=== PATIENT | female | born 1980 ===

== ENCOUNTER 2021-09-12 20:58 | Emergency (ER) | payer OTHER, SELFPAY ==
--- NOTE | 2021-09-12 21:56 | Event Note ---
ED Screening Note Date of service: 09/12/21 Time: 21:54 ED Screening Note: This 41-year-old female with history of paranoid schizophrenia presents for anxiety suicidal ideation without plan states cough productive clear concern for Covid, requesting psych evaluation, she is out of meds usual regimen is trazodone Celexa This initial assessment/diagnostic orders/clinical plan/treatment(s) is/are subject to change based on patients health status, clinical progression and re- assessment by fellow clinical providers in the ED. Further treatment and workup at subsequent clinical providers discretion. Patient/guardian urged not to elope from the ED as their condition may be serious if not clinically assessed and managed. Initial orders include: Psych consult, ua, hcg, uds, cmp, cbc, salyc, acet, cxr
--- NOTE | 2021-09-12 22:12 | XRay Report ---
CHEST 2 VIEWS INDICATION / CLINICAL INFORMATION: Medical Clearance Psych. COMPARISON: None available. FINDINGS: SUPPORT DEVICES: None. HEART / MEDIASTINUM: No significant abnormality. LUNGS / PLEURA: No significant pulmonary or pleural abnormality. No pneumothorax. ADDITIONAL FINDINGS: No significant additional findings. IMPRESSION: 1. No acute findings. Signer Name: Nik Collins MD Signed: 09/12/2021 10:08 PM Workstation Name: [id number]
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
[2021-09-12 22:56] LABS: Basophils % (Auto) 0.6 % (0.0-1.8); Eosinophils % (Auto) 0.1 % (0.0-4.3); Hematocrit 33.5 % (30.3-42.9); Hemoglobin 11.4 gm/dl (10.1-14.3); Lymphocytes # (Auto) 0.9 K/mm3 (1.2-5.4); Lymphocytes % (Auto) 14.1 % (13.4-35.0); Mean Corpuscular HGB Conc 34 % (30-34); Mean Corpuscular Volume 87 fl (79-97); Platelet Count 278 K/mm3 (140-440); Red Blood Count 3.85 M/mm3 (3.65-5.03); Red Cell Distribution Width 14.9 % (13.2-15.2)
[2021-09-12 23:17] LABS: BUN/Creatinine Ratio 10; Blood Urea Nitrogen 10 mg/dL (7-17); Calcium 9.1 mg/dL (8.4-10.2); Hemolysis Index 0
[2021-09-13 01:56] LABS: Bilirubin,Urine NEG (Negative); Blood,Urine NEG (Negative); Color,Urine Yellow (Yellow); Mucus,Urine FEW /HPF; Protein,Urine <15 mg/dL mg/dL (Negative); Urobilinogen,Urine < 2.0 mg/dL (<2.0)
[2021-09-13 02:04] LABS: Amphetamine Screen,Urine PRESUMPTIVE POSITIVE; Benzodiazepines Screen,Urine PRESUMPTIVE NEGATIVE; Cannabinoid Screen,Urine PRESUMPTIVE POSITIVE; Cocaine Screen,Urine PRESUMPTIVE POSITIVE; Methadone Screen,Urine PRESUMPTIVE NEGATIVE; Opiate Screen,Urine PRESUMPTIVE NEGATIVE
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
[2021-09-13] MEDS: TOPIRAMATE TAB 25 MG TAB PO SCH ×2 (12:50→23:28)
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
[2021-09-13] MEDS: traZODone 50 MG TAB PO SCH (23:28)
[2021-09-14] MEDS: TOPIRAMATE TAB 25 MG TAB PO SCH ×2 (10:59→22:35)
--- NOTE | 2021-09-14 11:25 | Progress Note ---
Subjective - Reason for Consult Consult date: 09/14/21 Reason for consult: mental health evaluation - Chief Complaint Chief complaint: Patient was seen today, she is calm. The patient continues to endorse suicidal ideation. She denies homicidal ideation and denies hallucinations. REVIEW OF SYSTEMS Constitutional: Negative for weight loss ENT: Negative for stridor Respiratory: Negative for cough or hemoptysis All other systems reviewed and are negative MENTAL STATUS EXAMINATION General Appearance and Behavior: Age appropriate, good hygiene, not wearing appropriate clothes, good eye contact, cooperative polite with questioning. Cooperation: Participating/engaged Psychomotor Behavior: Psychomotor normal Mood: Depressed Affect and affective range: congruent to stated mood Thought Process: suicidal Thought Content: Goal directed Speech: Normal tone and pace Suicidal Ideation: Yes Homicidal Ideation: Denies Hallucinations: Denies Delusions: None Impulse Control: Limited Insight and Judgment: Limited insight and poor judgment Memory: Normal Attention: Divided attention impaired Orientation: A/o x 3 Assessment and Plan (1)Major depressive disorder, recurrent,severe- F33.2 (2) Delusional Disorder Treatment Plan 1013 Topamax 50mg po BID Trazodone 50mg po qhs Medical: per primary Disposition: Recommend acute psychiatric inpatient treatment Will follow. Thanks Case staffed with Dr. Jimenes Medications and Allergies Mental Status Exam - Vital signs Last Vital Signs Temp 97.6 F 09/14/21 08:42 Pulse 90 09/14/21 08:42 Resp 18 09/14/21 08:42 BP 122/68 09/14/21 08:42 Pulse Ox 100 09/14/21 11:01
--- NOTE | 2021-09-14 11:35 | Emergency Department Report ---
Blank Doc - Documentation Documentation: Patient presented with suicidal ideation and still has suicidal thoughts. Pat ient has been medically cleared. Patient was seen by psychiatric services today. The plan is for psychiatric admission. They will attempt placement.
[2021-09-14] MEDS: traZODone 50 MG TAB PO SCH (22:35)
--- NOTE | 2021-09-15 09:45 | Progress Note ---
Subjective - Reason for Consult Consult date: 09/15/21 Reason for consult: mental health eval - Chief Complaint Chief complaint: Patient was seen today, she states she is feeling better. The patient continues to endorse suicidal ideation. She denies homicidal ideation and denies hallucinations. REVIEW OF SYSTEMS Constitutional: Negative for weight loss ENT: Negative for stridor Respiratory: Negative for cough or hemoptysis All other systems reviewed and are negative MENTAL STATUS EXAMINATION General Appearance and Behavior: Age appropriate, good hygiene, not wearing appropriate clothes, good eye contact, cooperative polite with questioning. Cooperation: Participating/engaged Psychomotor Behavior: Psychomotor normal Mood: Depressed Affect and affective range: congruent to stated mood Thought Process: suicidal Thought Content: Goal directed Speech: Normal tone and pace Suicidal Ideation: Yes Homicidal Ideation: Denies Hallucinations: Denies Delusions: None Impulse Control: Limited Insight and Judgment: Limited insight and poor judgment Memory: Normal Attention: Divided attention impaired Orientation: A/o x 3 Assessment and Plan (1)Major depressive disorder, recurrent,severe- F33.2 (2) Delusional Disorder Treatment Plan 1013 Topamax 50mg po BID Trazodone 50mg po qhs Medical: per primary Disposition: Recommend acute psychiatric inpatient treatment Will follow. Thanks Case staffed with Dr. Jimenes Medications and Allergies Mental Status Exam - Vital signs Last Vital Signs Temp 97.6 F 09/15/21 08:15 Pulse 91 H 09/15/21 08:15 Resp 18 09/15/21 08:15 BP 116/41 09/15/21 08:15 Pulse Ox 99 09/15/21 08:15
[2021-09-15] MEDS: TOPIRAMATE TAB 25 MG TAB PO SCH ×2 (09:59→22:00)
--- NOTE | 2021-09-15 12:37 | Emergency Department Report ---
Blank Doc - Documentation Documentation: Patient continues to express suicidal thoughts. She has been seen by psychiat anika services this morning. We are still awaiting psychiatric admission. Receiving facility is still pending.
[2021-09-15] MEDS: traZODone 50 MG TAB PO SCH (22:00)
[2021-09-16] MEDS ORDERED: NORepinephrine/NS 4 MG-250 ML 0 MG/0 ML BAG IV ONE (08:55)
[2021-09-16] MEDS ORDERED: DOPamine/D5W 800 MG/250 ML 0 MG/0 ML BAG IV ONE (08:55)
[2021-09-16] MEDS ORDERED: SODIUM CHLORIDE 0.9% 1000 ML 0 ML ONE (08:55)
[2021-09-16] MEDS: TOPIRAMATE TAB 25 MG TAB PO SCH ×2 (10:25→23:17)
--- NOTE | 2021-09-16 10:39 | Event Note ---
Date: 09/16/21 The patient was evaluated in the emergency department for symptoms described in the history of present illness. He/she was evaluated in the context of the global COVID-19 pandemic, which necessitated consideration that the patient might be at risk for infection with the virus that causes COVID-19. Institutional protocols and algorithms that pertain to the evaluation of patients at risk for COVID-19 are in a state of rapid change based on information released by regulatory bodies including the CDC and federal and state organizations. These policies and algorithms were followed during the patient's care in the emergency department. Please note that these policies, procedures and recommendations changed on a rapid basis. Laboratory studies, vital signs, nursing documentation, ER documentation, and psychiatric documentation are reviewed and appreciated. Nursing team reports no acute events this morning or concerns. The patient is awake and ambulating and does not appear to be in any acute distress. The patient was deemed medically suitable for psychiatric disposition and placement during his initial ER evaluation. The patient continues to remain medically suitable for psychiatric placement and disposition. sHe is currently pending psychiatric placement. STI screening and testing does not constitute an emergent medical condition, and can be performed as an outpatient, with the patient's primary care physician, or local health department. Vital Signs 09/12/21 09/13/21 09/13/21 21:21 00:06 02:10 Temperature 98.2 F 98.9 F 98.6 F Pulse Rate 99 H 73 83 Respiratory 18 16 18 Rate Blood Pressure 122/71 115/61 118/60 [Right] O2 Sat by Pulse 100 97 98 Oximetry 09/13/21 09/13/21 09/13/21 07:33 07:51 14:44 Temperature 98.6 F 98.8 F Pulse Rate 86 86 Respiratory 20 20 Rate Blood Pressure 128/66 128/66 [Right] O2 Sat by Pulse 98 98 98 Oximetry 09/13/21 09/14/21 09/14/21 20:58 05:36 08:42 Temperature 98.8 F 98 F 97.6 F Pulse Rate 73 85 90 Respiratory 16 18 18 Rate Blood Pressure 104/34 101/54 122/68 [Right] O2 Sat by Pulse 99 98 100 Oximetry 09/14/21 09/14/21 09/15/21 11:01 21:20 08:15 Temperature 98.9 F 97.6 F Pulse Rate 94 H 91 H Respiratory 13 18 Rate Blood Pressure 123/82 116/41 [Right] O2 Sat by Pulse 100 98 99 Oximetry Lab Results 09/12/21 09/12/21 09/12/21 Range/Units 22:31 22:31 22:31 WBC 6.3 (4.5-11.0) K/mm3 RBC 3.85 (3.65-5.03) M/mm3 Hgb 11.4 (10.1-14.3) gm/dl Hct 33.5 (30.3-42.9) % MCV 87 (79-97) fl MCH 30 (28-32) pg MCHC 34 (30-34) % RDW 14.9 (13.2-15.2) % Plt Count 278 (140-440) K/mm3 Lymph % (Auto) 14.1 (13.4-35.0) % [place] % (Auto) 15.0 H (0.0-7.3) % Eos % (Auto) 0.1 (0.0-4.3) % Baso % (Auto) 0.6 (0.0-1.8) % Lymph # (Auto) 0.9 L (1.2-5.4) K/mm3 [place] # (Auto) 1.0 H (0.0-0.8) K/mm3 Eos # (Auto) 0.0 (0.0-0.4) K/mm3 Baso # (Auto) 0.0 (0.0-0.1) K/mm3 Seg Neutrophils % 70.2 H (40.0-70.0) % Seg Neutrophils # 4.5 (1.8-7.7) K/mm3 Sodium 140 (137-145) mmol/L Potassium 3.7 (3.6-5.0) mmol/L Chloride 104.4 (98-107) mmol/L Carbon Dioxide 20 L (22-30) mmol/L Anion Gap 19 mmol/L BUN 10 (7-17) mg/dL Creatinine 1.0 (0.6-1.2) mg/dL Estimated GFR > 60 ml/min BUN/Creatinine Ratio 10 % Glucose 82 (65-100) mg/dL Calcium 9.1 (8.4-10.2) mg/dL TSH 1.270 (0.270-4.200) mlU/mL HCG, Qual (Negative) Urine Color (Yellow) Urine Turbidity (Clear) Urine pH (5.0-7.0) Ur Specific [place] (1.003-1.030) Urine Protein (Negative) mg/dL Urine Glucose (UA) (Negative) mg/dL Urine Ketones (Negative) mg/dL Urine Blood (Negative) Urine Nitrite (Negative) Urine Bilirubin (Negative) Urine Urobilinogen (<2.0) mg/dL Ur Leukocyte Esterase (Negative) Urine WBC (Auto) (0.0-6.0) /HPF Urine RBC (Auto) (0.0-6.0) /HPF U Epithel Cells (Auto) (0-13.0) /HPF Urine Mucus /HPF Salicylates (2.8-20.0) mg/dL Urine Opiates Screen Urine Methadone Screen Acetaminophen (10.0-30.0) ug/mL Ur Barbiturates Screen Ur Phencyclidine Scrn Ur Amphetamines Screen U Benzodiazepines Scrn Urine Cocaine Screen U Marijuana (THC) Screen Drugs of Abuse Note Plasma/Serum Alcohol (0-0.07) % Coronavirus (PCR) (Negative) 09/12/21 09/12/21 09/12/21 Range/Units 22:31 22:31 23:11 WBC (4.5-11.0) K/mm3 RBC (3.65-5.03) M/mm3 Hgb (10.1-14.3) gm/dl Hct (30.3-42.9) % MCV (79-97) fl MCH (28-32) pg MCHC (30-34) % RDW (13.2-15.2) % Plt Count (140-440) K/mm3 Lymph % (Auto) (13.4-35.0) % [place] % (Auto) (0.0-7.3) % Eos % (Auto) (0.0-4.3) % Baso % (Auto) (0.0-1.8) % Lymph # (Auto) (1.2-5.4) K/mm3 [place] # (Auto) (0.0-0.8) K/mm3 Eos # (Auto) (0.0-0.4) K/mm3 Baso # (Auto) (0.0-0.1) K/mm3 Seg Neutrophils % (40.0-70.0) % Seg Neutrophils # (1.8-7.7) K/mm3 Sodium (137-145) mmol/L Potassium (3.6-5.0) mmol/L Chloride (98-107) mmol/L Carbon Dioxide (22-30) mmol/L Anion Gap mmol/L BUN (7-17) mg/dL Creatinine (0.6-1.2) mg/dL Estimated GFR ml/min BUN/Creatinine Ratio % Glucose (65-100) mg/dL Calcium (8.4-10.2) mg/dL TSH (0.270-4.200) mlU/mL HCG, Qual (Negative) Urine Color (Yellow) Urine Turbidity (Clear) Urine pH (5.0-7.0) Ur Specific [place] (1.003-1.030) Urine Protein (Negative) mg/dL Urine Glucose (UA) (Negative) mg/dL Urine Ketones (Negative) mg/dL Urine Blood (Negative) Urine Nitrite (Negative) Urine Bilirubin (Negative) Urine Urobilinogen (<2.0) mg/dL Ur Leukocyte Esterase (Negative) Urine WBC (Auto) (0.0-6.0) /HPF Urine RBC (Auto) (0.0-6.0) /HPF U Epithel Cells (Auto) (0-13.0) /HPF Urine Mucus /HPF Salicylates < 0.3 L (2.8-20.0) mg/dL Urine Opiates Screen Urine Methadone Screen Acetaminophen 5.0 L (10.0-30.0) ug/mL Ur Barbiturates Screen Ur Phencyclidine Scrn Ur Amphetamines Screen U Benzodiazepines Scrn Urine Cocaine Screen U Marijuana (THC) Screen Drugs of Abuse Note Plasma/Serum Alcohol < 0.01 (0-0.07) % Coronavirus (PCR) (Negative) 09/13/21 09/13/21 09/13/21 Range/Units 00:48 01:18 01:18 WBC (4.5-11.0) K/mm3 RBC (3.65-5.03) M/mm3 Hgb (10.1-14.3) gm/dl Hct (30.3-42.9) % MCV (79-97) fl MCH (28-32) pg MCHC (30-34) % RDW (13.2-15.2) % Plt Count (140-440) K/mm3 Lymph % (Auto) (13.4-35.0) % [place] % (Auto) (0.0-7.3) % Eos % (Auto) (0.0-4.3) % Baso % (Auto) (0.0-1.8) % Lymph # (Auto) (1.2-5.4) K/mm3 [place] # (Auto) (0.0-0.8) K/mm3 Eos # (Auto) (0.0-0.4) K/mm3 Baso # (Auto) (0.0-0.1) K/mm3 Seg Neutrophils % (40.0-70.0) % Seg Neutrophils # (1.8-7.7) K/mm3 Sodium (137-145) mmol/L Potassium (3.6-5.0) mmol/L Chloride (98-107) mmol/L Carbon Dioxide (22-30) mmol/L Anion Gap mmol/L BUN (7-17) mg/dL Creatinine (0.6-1.2) mg/dL Estimated GFR ml/min BUN/Creatinine Ratio % Glucose (65-100) mg/dL Calcium (8.4-10.2) mg/dL TSH (0.270-4.200) mlU/mL HCG, Qual Negative (Negative) Urine Color Yellow (Yellow) Urine Turbidity Clear (Clear) Urine pH 5.0 (5.0-7.0) Ur Specific [place] 1.014 (1.003-1.030) Urine Protein <15 mg/dl (Negative) mg/dL Urine Glucose (UA) Neg (Negative) mg/dL Urine Ketones Tr (Negative) mg/dL Urine Blood Neg (Negative) Urine Nitrite Neg (Negative) Urine Bilirubin Neg (Negative) Urine Urobilinogen < 2.0 (<2.0) mg/dL Ur Leukocyte Esterase Neg (Negative) Urine WBC (Auto) 1.0 (0.0-6.0) /HPF Urine RBC (Auto) 2.0 (0.0-6.0) /HPF U Epithel Cells (Auto) 2.0 (0-13.0) /HPF Urine Mucus Few /HPF Salicylates (2.8-20.0) mg/dL Urine Opiates Screen Presumptive negative Urine Methadone Screen Presumptive negative Acetaminophen (10.0-30.0) ug/mL Ur Barbiturates Screen Presumptive negative Ur Phencyclidine Scrn Presumptive negative Ur Amphetamines Screen Presumptive positive U Benzodiazepines Scrn Presumptive negative Urine Cocaine Screen Presumptive positive U Marijuana (THC) Screen Presumptive positive Drugs of Abuse Note Disclamer Plasma/Serum Alcohol (0-0.07) % Coronavirus (PCR) (Negative) 09/13/21 Range/Units 10:30 WBC (4.5-11.0) K/mm3 RBC (3.65-5.03) M/mm3 Hgb (10.1-14.3) gm/dl Hct (30.3-42.9) % MCV (79-97) fl MCH (28-32) pg MCHC (30-34) % RDW (13.2-15.2) % Plt Count (140-440) K/mm3 Lymph % (Auto) (13.4-35.0) % [place] % (Auto) (0.0-7.3) % Eos % (Auto) (0.0-4.3) % Baso % (Auto) (0.0-1.8) % Lymph # (Auto) (1.2-5.4) K/mm3 [place] # (Auto) (0.0-0.8) K/mm3 Eos # (Auto) (0.0-0.4) K/mm3 Baso # (Auto) (0.0-0.1) K/mm3 Seg Neutrophils % (40.0-70.0) % Seg Neutrophils # (1.8-7.7) K/mm3 Sodium (137-145) mmol/L Potassium (3.6-5.0) mmol/L Chloride (98-107) mmol/L Carbon Dioxide (22-30) mmol/L Anion Gap mmol/L BUN (7-17) mg/dL Creatinine (0.6-1.2) mg/dL Estimated GFR ml/min BUN/Creatinine Ratio % Glucose (65-100) mg/dL Calcium (8.4-10.2) mg/dL TSH (0.270-4.200) mlU/mL HCG, Qual (Negative) Urine Color (Yellow) Urine Turbidity (Clear) Urine pH (5.0-7.0) Ur Specific [place] (1.003-1.030) Urine Protein (Negative) mg/dL Urine Glucose (UA) (Negative) mg/dL Urine Ketones (Negative) mg/dL Urine Blood (Negative) Urine Nitrite (Negative) Urine Bilirubin (Negative) Urine Urobilinogen (<2.0) mg/dL Ur Leukocyte Esterase (Negative) Urine WBC (Auto) (0.0-6.0) /HPF Urine RBC (Auto) (0.0-6.0) /HPF U Epithel Cells (Auto) (0-13.0) /HPF Urine Mucus /HPF Salicylates (2.8-20.0) mg/dL Urine Opiates Screen Urine Methadone Screen Acetaminophen (10.0-30.0) ug/mL Ur Barbiturates Screen Ur Phencyclidine Scrn Ur Amphetamines Screen U Benzodiazepines Scrn Urine Cocaine Screen U Marijuana (THC) Screen Drugs of Abuse Note Plasma/Serum Alcohol (0-0.07) % Coronavirus (PCR) Positive A (Negative)
--- NOTE | 2021-09-16 11:50 | Progress Note ---
Subjective - Reason for Consult Consult date: 09/16/21 Reason for consult: SI - Chief Complaint Chief complaint: Patient was seen today, she states she is feeling better. The patient continues to endorse suicidal ideation. She denies homicidal ideation and denies hallucinations. REVIEW OF SYSTEMS Constitutional: Negative for weight loss ENT: Negative for stridor Respiratory: Negative for cough or hemoptysis All other systems reviewed and are negative MENTAL STATUS EXAMINATION General Appearance and Behavior: Age appropriate, good hygiene, not wearing appropriate clothes, good eye contact, cooperative polite with questioning. Cooperation: Participating/engaged Psychomotor Behavior: Psychomotor normal Mood: Depressed Affect and affective range: congruent to stated mood Thought Process: suicidal Thought Content: Goal directed Speech: Normal tone and pace Suicidal Ideation: Yes Homicidal Ideation: Denies Hallucinations: Denies Delusions: None Impulse Control: Limited Insight and Judgment: Limited insight and poor judgment Memory: Normal Attention: Divided attention impaired Orientation: A/o x 3 Assessment and Plan (1)Major depressive disorder, recurrent,severe- F33.2 (2) Delusional Disorder Treatment Plan 1013 Topamax 50mg po BID Trazodone 50mg po qhs Medical: per primary Disposition: Recommend acute psychiatric inpatient treatment Will follow. Thanks Case staffed with Dr. Jimenes Medications and Allergies Mental Status Exam - Vital signs Last Vital Signs Temp 97.6 F 09/15/21 08:15 Pulse 91 H 09/15/21 08:15 Resp 18 09/15/21 08:15 BP 116/41 09/15/21 08:15 Pulse Ox 99 09/15/21 08:15
[2021-09-16] MEDS: traZODone 50 MG TAB PO SCH (23:16)
[2021-09-17 06:13] VITALS: BP 100/58
--- NOTE | 2021-09-17 09:48 | Progress Note ---
Subjective - Reason for Consult Consult date: 09/17/21 Reason for consult: SI - Chief Complaint Chief complaint: Patient was seen today, she states she is feeling better. The patient continues denies suicidal/homicidal ideation and denies hallucinations. REVIEW OF SYSTEMS Constitutional: Negative for weight loss ENT: Negative for stridor Respiratory: Negative for cough or hemoptysis All other systems reviewed and are negative MENTAL STATUS EXAMINATION General Appearance and Behavior: Age appropriate, good hygiene, not wearing appropriate clothes, good eye contact, cooperative polite with questioning. Cooperation: Participating/engaged Psychomotor Behavior: Psychomotor normal Mood:ok Affect and affective range: congruent to stated mood Thought Process: Denies Thought Content: Goal directed Speech: Normal tone and pace Suicidal Ideation:denies Homicidal Ideation: Denies Hallucinations: Denies Delusions: None Impulse Control: Limited Insight and Judgment: Limited insight and poor judgment Memory: Normal Attention: Divided attention impaired Orientation: A/o x 3 Assessment and Plan (1)Major depressive disorder, recurrent,severe- F33.2 (2) Delusional Disorder Treatment Plan DC. 1013 Topamax 50mg po BID Trazodone 50mg po qhs Medical: per primary Disposition:Do not recommend acute psychiatric inpatient treatment. Will sign off. Thanks Case staffed with Dr. Jimenes Medications and Allergies Mental Status Exam - Vital signs Last Vital Signs Temp 98.4 F 09/17/21 06:13 Pulse 72 09/17/21 06:13 Resp 18 09/17/21 06:13 BP 100/58 09/17/21 06:13 Pulse Ox 100 09/17/21 08:04
--- NOTE | 2021-09-17 11:06 | Emergency Department Report ---
Blank Doc - Documentation Documentation: Patient was cleared from psychiatric services. She was not suicidal homicidal. There was no evidence of delusion. She was discharged with outpatient follow- up.
[2021-09-17] MEDS: TOPIRAMATE TAB 25 MG TAB PO SCH (11:08)
== END 2021-09-17 11:50 | disposition home or self-care (01) ==
LOC: ED 20:58
DX: U07.1 COVID-19 (principal); R45.850 Homicidal ideations; J06.9 Acute upper respiratory infection, unspecified
CPT/HCPCS: 36415; 71046; 80048; 80307; 81001; 84443; 84703; 85025; 99284; U0003; 80320; G0480; J1265; J7030